=== PATIENT | female | born 1995 | race Caucasian/White ===

== ENCOUNTER 2018-11-09 16:28 | Emergency (ER) | payer OTHER ==
[2018-11-09] MEDS ORDERED: NS 1,000 ML IV ONE (17:19)
--- NOTE | 2018-11-09 17:21 | EDPHY ---
H & P Time Seen by Provider: 11/09/18 17:00 HPI/ROS: Chief complaint. Abdominal pain HPI. The patient is 23-year-old female with abdominal pain that began at 11:00 a.m. This morning. She was feeling well earlier. She stood up after a meeting and began to have right lower quadrant abdominal pain. She describes as sharp. No radiation to the back. No nausea vomiting or diarrhea. No urinary symptoms. No fever. Pain is worse with standing. No previous similar symptoms or previous abdominal surgery. No chest discomfort or trouble breathing ROS 10 systems were reviewed and negative with the exception of the elements mentioned in the history of present illness Past Medical/Surgical History: Healthy Social History: Single, nonsmoker, no alcohol Smoking Status: Never smoked Physical Exam: General Appearance: Alert pleasant well-developed female mild distress vital signs are stable Eyes: Pupils equal and round no pallor or injection. ENT, Mouth: Mucous membranes are moist. Respiratory: There are no retractions, lungs are clear to auscultation. Cardiovascular: Regular rate and rhythm. Gastrointestinal: Abdomen is soft with tenderness in the right lower quadrant at McBurney's point. No significant tenderness in the right adnexal area. No masses. Normal bowel sounds. No left-sided tenderness. No right flank tenderness. Neurological: Awake and alert, sensory and motor exams grossly normal. Skin: Warm and dry, no rashes. Musculoskeletal: Neck is supple nontender. Extremities symmetrical, full range of motion. Psychiatric: Patient is oriented X 3, there is no agitation. Constitutional: Initial Vital Signs Temperature (C) 36.9 C 11/09/18 16:39 Heart Rate 76 11/09/18 16:39 Respiratory Rate 18 11/09/18 16:39 Blood Pressure 136/86 H 11/09/18 16:39 O2 Sat (%) 98 11/09/18 16:39 O2 Delivery Mode Room Air Allergies/Adverse Reactions: No Known Allergies Allergy (Unverified 11/09/18 16:38) Home Medications: Medication Instructions Recorded NK [No Known Home Meds] 11/09/18 Medical Decision Making - Diagnostics Imaging Results: Imaging Impressions Abdomen Ultrasound 11/09/18 17:19 Impression: Nonvisualization of the appendix with no secondary evidence of appendicitis. Findings discussed with THEO BARRETT 11/09/2018 at 18:49. Pelvic/Renal Ultrasound 11/09/18 17:19 Impression: Normal pelvic ultrasound. Findings discussed with THEO BARRETT 11/09/2018 at 18:49. Abdomen CT 11/09/18 18:50 Impression: 1. Constipation in a moderately redundant colon. 2. Normal appendix. Final concordant results discussed with Dr. Theo Barrett at 7:25 PM. General information for patients regarding this examination can be found at [email or web address]. If you have questions or comments about this report, please contact me at (hospital) or [phone] (cell). CT abdomen and pelvis with IV contrast reviewed by me and discussed with Dr. Hartmann shows normal appendix. Constipation is present Procedures: IV normal saline ED Course/Re-evaluation: Re-evaluation 7:35 p.m.. Patient is stable. She and I discussed imaging and lab results. We discussed treatment plan including criteria for return importance of follow-up and further evaluation. She expresses understanding and agreement Differential Diagnosis: I considered appendicitis, urinary tract infection, ectopic , ovarian cyst - Data Points Laboratory Results: Laboratory Results 11/09/18 17:10 11/09/18 17:10 11/09/18 11/09/18 11/09/18 17:55 17:10 17:10 WBC RBC Hgb Hct MCV MCH MCHC RDW Plt Count MPV Neut % (Auto) Lymph % (Auto) [place] % (Auto) Eos % (Auto) Baso % (Auto) Nucleat RBC Rel Count Absolute Neuts (auto) Absolute Lymphs (auto) Absolute Monos (auto) Absolute Eos (auto) Absolute Basos (auto) Absolute Nucleated RBC Immature Gran % Immature Gran # Sodium 139 mEq/L mEq/L (135-145) Potassium 3.9 mEq/L mEq/L (3.5-5.2) Chloride 104 mEq/L mEq/L (97-110) Carbon Dioxide 24 mEq/l mEq/l (22-31) Anion Gap 11 mEq/L mEq/L (6-14) BUN 18 mg/dL mg/dL (7-23) Creatinine 0.7 mg/dL mg/dL (0.6-1.0) Estimated GFR > 60 Glucose 95 mg/dL mg/dL (70-100) Calcium 9.7 mg/dL mg/dL (8.5-10.4) Beta HCG, Qual NEGATIVE Urine Color YELLOW Urine Appearance CLEAR Urine pH 6.0 (5.0-7.5) Ur Specific [place] 1.020 (1.002-1.030) Urine Protein NEGATIVE (NEGATIVE) Urine Ketones NEGATIVE (NEGATIVE) Urine Blood NEGATIVE (NEGATIVE) Urine Nitrate NEGATIVE (NEGATIVE) Urine Bilirubin NEGATIVE (NEGATIVE) Urine Urobilinogen NEGATIVE EU EU (0.2-1.0) Ur Leukocyte Esterase NEGATIVE (NEGATIVE) Urine RBC 1-3 /hpf /hpf (0-3) Urine WBC 1-3 /hpf /hpf (0-3) Ur Epithelial Cells TRACE /lpf /lpf (NONE-1+) Urine Glucose NEGATIVE (NEGATIVE) 11/09/18 17:10 WBC 7.31 10^3/uL 10^3/uL (3.80-9.50) RBC 4.94 10^6/uL 10^6/uL (4.18-5.33) Hgb 14.7 g/dL g/dL (12.6-16.3) Hct 44.7 % % (38.0-47.0) MCV 90.5 fL fL (81.5-99.8) MCH 29.8 pg pg (27.9-34.1) MCHC 32.9 g/dL g/dL (32.4-36.7) RDW 12.6 % % (11.5-15.2) Plt Count 255 10^3/uL 10^3/uL (150-400) MPV 10.4 fL fL (8.7-11.7) Neut % (Auto) 58.9 % % (39.3-74.2) Lymph % (Auto) 34.3 % % (15.0-45.0) [place] % (Auto) 4.9 % % (4.5-13.0) Eos % (Auto) 1.1 % % (0.6-7.6) Baso % (Auto) 0.7 % % (0.3-1.7) Nucleat RBC Rel Count 0.0 % % (0.0-0.2) Absolute Neuts (auto) 4.30 10^3/uL 10^3/uL (1.70-6.50) Absolute Lymphs (auto) 2.51 10^3/uL 10^3/uL (1.00-3.00) Absolute Monos (auto) 0.36 10^3/uL 10^3/uL (0.30-0.80) Absolute Eos (auto) 0.08 10^3/uL 10^3/uL (0.03-0.40) Absolute Basos (auto) 0.05 10^3/uL 10^3/uL (0.02-0.10) Absolute Nucleated RBC 0.00 10^3/uL 10^3/uL (0-0.01) Immature Gran % 0.1 % % (0.0-1.1) Immature Gran # 0.01 10^3/uL 10^3/uL (0.00-0.10) Sodium Potassium Chloride Carbon Dioxide Anion Gap BUN Creatinine Estimated GFR Glucose Calcium Beta HCG, Qual Urine Color Urine Appearance Urine pH Ur Specific [place] Urine Protein Urine Ketones Urine Blood Urine Nitrate Urine Bilirubin Urine Urobilinogen Ur Leukocyte Esterase Urine RBC Urine WBC Ur Epithelial Cells Urine Glucose Medications Given: Discontinued Medications Sodium Chloride (Ns) 1,000 mls @ 0 mls/hr IV EDNOW ONE; Wide Open PRN Reason: Protocol Stop: 11/09/18 17:20 Last Admin: 11/09/18 17:33 Dose: 1,000 mls Departure - Departure Disposition: Home, Routine, Self-Care Clinical Impression: Abdominal pain Qualifiers: Abdominal location: right lower quadrant Qualified Code(s): R10.31 - Right lower quadrant pain Condition: Good Instructions: High Fiber Diet (ED), Constipation (ED) Additional Instructions: Increased fluids including fruit and prune juice. Milk of magnesia, magnesium citrate to help with constipation Activity as tolerated Return for worsening symptoms. Re-evaluation 1-2 days for continuing symptoms
[2018-11-09 17:25] LABS: PLATELET COUNT 255 10^3/uL (150-400)
[2018-11-09] MEDS ORDERED: IOHEXOL 300 mgI/ML (OMNIPAQUE) 150 ML BTL IV ONE (19:01)
[2018-11-09 19:49] VITALS: BP 132/85
== END 2018-11-09 19:48 | disposition home or self-care (01) ==
DX: R10.31 Right lower quadrant pain (principal); E86.9 Volume depletion, unspecified; K59.00 Constipation, unspecified
CPT/HCPCS: Q9967